=== PATIENT | female | born 2000 | race Hispanic/Latino ===

== ENCOUNTER 2022-07-28 18:29 | Day surgery (SDC) | payer OTHER ==
[2022-07-28 19:32] VITALS: BMI 29.9
[2022-07-28 19:52] LABS: Bilirubin Neg (Negative); Blood, Urine 10 (Negative); Clarity Slightly Cloudy (Clear); Glucose, Urine (Dipstick) Normal (Negative); Ketone, Urine 5 mg/dL (Negative); Leukocyte 25 (Negative); Nitrite Negative (Negative); Protein, Urine (Dipstick) 30 mg/dl (Neg-Trace); Specific Gravity, Urine 1.025 (1.002-1.036)
[2022-07-28 20:13] LABS: Urine Culture Reflex No No
[2022-07-28 20:16] LABS: Bacteria/HPF None Seen HPF (None Seen); RBC/HPF 0-3 HPF (0-3); WBC/HPF 0-3 HPF (0-3)
[2022-07-28] MEDS ORDERED: hydrALAZINE 20 MG/ML VIAL SLOW IVP PRN (20:26)
[2022-07-28] MEDS ORDERED: Nitrofurantoin Monohyd/M-Cryst 100 MG CAP PO SCH (21:00)
== END 2022-07-28 20:38 | disposition home or self-care (01) ==
LOC: CSHLD/OP 18:29
PROVIDERS: ATTEND Family Medicine
DX: O23.42 Unspecified infection of urinary tract in pregnancy, second trimester (principal); N39.0 Urinary tract infection, site not specified; Z3A.25 25 weeks gestation of pregnancy
CPT/HCPCS: 51701; 99282

== ENCOUNTER 2022-09-15 21:32 | Day surgery (SDC) | payer OTHER ==
[2022-09-15 22:09] VITALS: BMI 30.9
[2022-09-15] MEDS ORDERED: Lactated Ringer's 1,000 ML IV SCH (22:15)
[2022-09-15] MEDS ORDERED: hydrALAZINE 20 MG/ML VIAL SLOW IVP PRN (22:15)
[2022-09-15 22:46] LABS: #Eosinphils 0.1 10x3/uL (0.0-0.5); #Monocytes 0.7 10x3/uL (0.0-1.1); #Neutrophils 6.3 10x3/uL (1.5-8.4); %Basophils 0.2 % (0.0-2.0); %Eosinophils 0.7 % (0.0-6.0); %Lymphocytes 19.3 % (18.0-47.0); %Monocytes 7.9 % (0.0-10.0); %Neutrophils 71.3 % (40.0-75.0); Hemoglobin 10.8 g/dL (12.0-15.5); Mean Corpuscular HGB CONC 34.5 g/dL (32.0-36.0); Mean Corpuscular Hemoglobin 30.9 pg (27.0-33.0); Mean Corpuscular Volume 89.4 fl (81.6-98.3); Mean Platelet Volume 9.7 fl (7.4-10.4); Platelet Count 283 10x3/uL (150-450); RBC Distribution Width 13.4 % (11.5-14.5); White Blood Cell (WBC) Count 8.8 10x3/uL (3.5-10.5)
[2022-09-15 23:03] LABS: ALT (SGPT) 6 U/L (8-55); AST (SGOT) 15 U/L (5-30); Albumin 3.7 g/dL (3.5-5.0); Alkaline Phosphatase 187 U/L (40-100); Anion Gap 14 mmol/L (10-20); BUN (Urea Nitrogen) 8 mg/dL (8.4-21.0); Bilirubin, Total 0.2 mg/dL (0.2-1.2); Calc. Creatinine Clearance 192 mL/min (70-130); Calcium 9.2 mg/dL (7.8-10.44); Carbon Dioxide 22 mmol/L (22-29); Chloride 105 mmol/L (98-107); Estimated GFR 134; Globulin 3.2 g/dL (2.4-3.5); Glucose 95 mg/dL (70-105); Potassium 3.3 mmol/L (3.5-5.1); Protein, Total 6.9 g/dL (6.0-8.3); Sodium 138 mmol/L (136-145)
[2022-09-15 23:19] LABS: SARS-CoV-2 NAA Rapid Test Not Detected (NotDetected)
[2022-09-15 23:32] LABS: Bilirubin Neg (Negative); Blood, Urine 25 (Negative); Clarity Sl. Cloudy (Clear); Glucose, Urine (Dipstick) 100 mg/dL (Negative); Ketone, Urine Negative (Negative); Leukocyte 500 (Negative); Nitrite Negative (Negative); Protein, Urine (Dipstick) 15 mg/dl (Neg-Trace); Specific Gravity, Urine 1.015 (1.005-1.030)
[2022-09-15 23:34] LABS: Urine Culture Reflex No No
[2022-09-15 23:41] LABS: Amphetamine Not Detected (NotDetected); Barbiturates Screen Not Detected (NotDetected); Benzodiazepine Screen Not Detected (NotDetected); Cocaine Metabolite Screen Not Detected (NotDetected); Methadone Not Detected (NotDetected); Methamphetamine Not Detected (NotDetected); Opiate Screen Not Detected (NotDetected); Oxycodone Screen Not Detected (NotDetected); Phencyclidine (PCP) Not Detected (NotDetected); THC/Cannabinoid Screen Not Detected (NotDetected); Tricyclic Screen Not Detected (NotDetected)
[2022-09-15 23:52] LABS: RBC/HPF 0-3 HPF (0-3)
[2022-09-15 23:53] LABS: Yeast-Budding 2+ HPF (None Seen); Yeast-Hyphae 3+ HPF (None Seen)
[2022-09-15 23:54] LABS: Bacteria/HPF 3+ HPF (None Seen)
[2022-09-16] MEDS ORDERED: CEFAZOLIN 2 GM in Sodium Chloride 0.9% 100 ML IVPB SCH
[2022-09-16] MEDS ORDERED: Fluconazole 100 MG TAB PO SCH
[2022-09-16] MEDS ORDERED: CEFAZOLIN 2 GM VIAL ONE (00:02)
[2022-09-16] MEDS ORDERED: cefTRIAXone\\ROCEPHIN 2 GM VIAL IM SCH (00:15)
[2022-09-16] MEDS ORDERED: Lidocaine 1% PF 5 ML VIAL FS SCH (00:30)
== END 2022-09-16 00:52 | disposition home or self-care (01) ==
LOC: CSHLD/OP 21:32
PROVIDERS: ATTEND Family Medicine
DX: O23.43 Unspecified infection of urinary tract in pregnancy, third trimester (principal); O98.813 Other maternal infectious and parasitic diseases complicating pregnancy, third trimester; B37.9 Candidiasis, unspecified; O21.2 Late vomiting of pregnancy; Z3A.32 32 weeks gestation of pregnancy
CPT/HCPCS: 80053; 80306; 81001; 85025; J0696

== ENCOUNTER 2022-09-20 12:50 | Day surgery (SDC) | payer OTHER ==
[2022-09-20 13:42] VITALS: BMI 32.9
[2022-09-20] MEDS ORDERED: hydrALAZINE 20 MG/ML VIAL SLOW IVP PRN (14:29)
[2022-09-20] MEDS ORDERED: Ondansetron PF 4 MG/2 ML Vial IVP PRN (14:32)
[2022-09-20] MEDS ORDERED: Lactated Ringer's 1,000 ML IV SCH (14:45)
[2022-09-20 15:29] LABS: Bilirubin Neg (Negative); Blood, Urine 25 (Negative); Clarity Sl. Cloudy (Clear); Glucose, Urine (Dipstick) Normal (Negative); Ketone, Urine 15 mg/dL (Negative); Leukocyte 25 (Negative); Nitrite Negative (Negative); Protein, Urine (Dipstick) 15 mg/dl (Neg-Trace); Specific Gravity, Urine 1.015 (1.005-1.030); pH, Urine 6.5 (5.0-9.0)
[2022-09-20 15:46] LABS: Bacteria/HPF 2+ HPF (None Seen); RBC/HPF 0-3 HPF (0-3); WBC/HPF 0-3 HPF (0-3)
[2022-09-20 15:48] LABS: Mucous/LPF Rare LPF (<2+); Yeast-Budding Rare HPF (None Seen)
[2022-09-20 16:10] LABS: #Eosinphils 0.1 10x3/uL (0.0-0.5); #Monocytes 0.6 10x3/uL (0.0-1.1); #Neutrophils 6.4 10x3/uL (1.5-8.4); %Basophils 0.3 % (0.0-2.0); %Eosinophils 0.8 % (0.0-6.0); %Lymphocytes 17.4 % (18.0-47.0); %Monocytes 7.2 % (0.0-10.0); %Neutrophils 73.5 % (40.0-75.0); Mean Corpuscular HGB CONC 33.9 g/dL (32.0-36.0); Mean Corpuscular Volume 88.6 fl (81.6-98.3); Mean Platelet Volume 9.7 fl (7.4-10.4); Platelet Count 254 10x3/uL (150-450); RBC Distribution Width 13.5 % (11.5-14.5); Red Blood Cell (RBC) Count 3.33 10x6/uL (3.90-5.03); White Blood Cell (WBC) Count 8.6 10x3/uL (3.5-10.5)
[2022-09-20 16:12] LABS: ALT (SGPT) 16 U/L (8-55); AST (SGOT) 20 U/L (5-30); Albumin 3.5 g/dL (3.5-5.0); Alkaline Phosphatase 189 U/L (40-100); Anion Gap 13 mmol/L (10-20); BUN (Urea Nitrogen) 7 mg/dL (8.4-21.0); Bilirubin, Total 0.2 mg/dL (0.2-1.2); Calc. Creatinine Clearance 216 mL/min (70-130); Calcium 8.9 mg/dL (7.8-10.44); Carbon Dioxide 22 mmol/L (22-29); Chloride 106 mmol/L (98-107); Estimated GFR 136; Glucose 74 mg/dL (70-105); Potassium 3.5 mmol/L (3.5-5.1); Protein, Total 6.5 g/dL (6.0-8.3); Sodium 137 mmol/L (136-145)
== END 2022-09-20 18:10 | disposition home or self-care (01) ==
LOC: CSHLD/OP 12:50
PROVIDERS: ATTEND Family Medicine
DX: O21.2 Late vomiting of pregnancy (principal); O26.893 Other specified pregnancy related conditions, third trimester; R10.9 Unspecified abdominal pain; Z3A.33 33 weeks gestation of pregnancy; Z79.899 Other long term (current) drug therapy
CPT/HCPCS: 80053; 81003; 81015; 85025; 96360; 96361; 96375; 99283; J2405

== ENCOUNTER 2022-09-29 04:30 | Emergency (ER) | payer OTHER ==
[2022-09-29] MEDS ORDERED: Acetaminophen 500 MG TAB ONE (04:59)
[2022-09-29] MEDS ORDERED: diphenhydrAMINE 25 MG CAP ONE (05:00)
== END 2022-09-29 05:07 | disposition home or self-care (01) ==
LOC: CSHERS 04:30
DX: O99.713 Diseases of the skin and subcutaneous tissue complicating pregnancy, third trimester (principal); R21 Rash and other nonspecific skin eruption; Z3A.34 34 weeks gestation of pregnancy
CPT/HCPCS: 99282

== ENCOUNTER 2022-10-06 08:19 | Day surgery (SDC) | payer OTHER ==
[2022-10-06 06:11] LABS: SARS-CoV-2 NAA Rapid Test Not Detected (NotDetected)
[2022-10-06 06:41] LABS: #Eosinphils 0.1 10x3/uL (0.0-0.5); #Neutrophils 10.5 10x3/uL (1.5-8.4); %Basophils 0.2 % (0.0-2.0); %Eosinophils 0.8 % (0.0-6.0); %Lymphocytes 10.1 % (18.0-47.0); %Monocytes 7.7 % (0.0-10.0); %Neutrophils 80.7 % (40.0-75.0); Hemoglobin 10.2 g/dL (12.0-15.5); Mean Corpuscular HGB CONC 32.8 g/dL (32.0-36.0); Mean Corpuscular Hemoglobin 28.9 pg (27.0-33.0); Mean Corpuscular Volume 88.1 fl (81.6-98.3); Mean Platelet Volume 9.8 fl (7.4-10.4); Platelet Count 263 10x3/uL (150-450); RBC Distribution Width 13.7 % (11.5-14.5); Red Blood Cell (RBC) Count 3.53 10x6/uL (3.90-5.03)
[2022-10-06 06:47] LABS: ALT (SGPT) 12 U/L (8-55); AST (SGOT) 16 U/L (5-30); Albumin 3.5 g/dL (3.5-5.0); Alkaline Phosphatase 250 U/L (40-100); Anion Gap 14 mmol/L (10-20); BUN (Urea Nitrogen) 7 mg/dL (8.4-21.0); Bilirubin, Total 0.4 mg/dL (0.2-1.2); Calc. Creatinine Clearance 0 mL/min (70-130); Calcium 8.8 mg/dL (7.8-10.44); Carbon Dioxide 22 mmol/L (22-29); Chloride 107 mmol/L (98-107); Estimated GFR 132; Globulin 3.2 g/dL (2.4-3.5); Glucose 86 mg/dL (70-105); Potassium 3.8 mmol/L (3.5-5.1); Protein, Total 6.7 g/dL (6.0-8.3); Sodium 139 mmol/L (136-145)
[~2022-10-06 08:19] MED LIST: Ondansetron ODT 4 MG TAB ONE; diphenhydrAMINE 25 MG CAP ONE
[2022-10-06] MEDS ORDERED: hydrALAZINE 20 MG/ML VIAL SLOW IVP PRN (09:05)
[2022-10-06 09:26] VITALS: BMI 34.4
[2022-10-06 09:55] LABS: Fetal Membranes Rupture No Membranes Rupture (No Rupture)
[2022-10-06 12:25] LABS: Bilirubin Neg (Negative); Blood, Urine 10 (Negative); CAUTI Indications for Culture Pregnancy; Clarity Clear (Clear); Glucose, Urine (Dipstick) Normal (Negative); Ketone, Urine Negative (Negative); Leukocyte 25 (Negative); Nitrite Negative (Negative); Protein, Urine (Dipstick) Negative (Neg-Trace); Specific Gravity, Urine 1.005 (1.005-1.030); Urobilinogen Normal mg/dL (Less than 2)
[2022-10-06 12:34] LABS: Urine Culture Reflex Yes Yes
[2022-10-06 12:44] LABS: Bacteria/HPF None Seen HPF (None Seen); RBC/HPF 0-3 HPF (0-3); Squamous Epithelial 0-3 HPF (0-3); WBC/HPF 0-3 HPF (0-3)
[2022-10-06] MEDS ORDERED: Promethazine HCl 12.5 MG, Admixture Fee 1 EACH in Sodium Chloride 0.9% 50 ML IVPB PRN (13:01)
[2022-10-06] MEDS ORDERED: Acetaminophen 500 MG TAB PO SCH (13:15)
== END 2022-10-06 13:57 | disposition home or self-care (01) ==
LOC: CSHLD/OP 08:19 → CSHERS 08:20 → CSHLD/OP 08:20 → EDSTATUS 08:23 → CSHLD/OP 13:57
PROVIDERS: ATTEND Family Medicine
DX: O21.2 Late vomiting of pregnancy (principal); O47.03 False labor before 37 completed weeks of gestation, third trimester; O99.713 Diseases of the skin and subcutaneous tissue complicating pregnancy, third trimester; O98.513 Other viral diseases complicating pregnancy, third trimester; Z3A.35 35 weeks gestation of pregnancy; Z20.822 Contact with and (suspected) exposure to COVID-19
CPT/HCPCS: 36415; 76819; 80053; 81001; 82239; 84112; 85025; 87086; 96360; 96361; 96365; 99283; J0360; J2550; Q0162

== ENCOUNTER 2022-10-23 01:58 | Day surgery (SDC) | payer OTHER ==
[2022-10-23 02:22] VITALS: BMI 34.0
[2022-10-23] MEDS ORDERED: Lidocaine 1% (PF) 30 ML VIAL SC PRN (03:03)
[2022-10-23] MEDS ORDERED: NS w/ Oxytocin 30 units 500 ML IV SCH (03:15)
== END 2022-10-23 03:15 | disposition home or self-care (01) ==
LOC: CSHLD/OP 01:58
PROVIDERS: ATTEND Family Medicine
DX: O47.1 False labor at or after 37 completed weeks of gestation (principal); O26.893 Other specified pregnancy related conditions, third trimester; M54.50 Low back pain, unspecified; Z3A.38 38 weeks gestation of pregnancy; Z79.899 Other long term (current) drug therapy; Z98.890 Other specified postprocedural states
CPT/HCPCS: 99282

== ENCOUNTER 2022-10-28 10:50 | Day surgery (SDC) | payer OTHER ==
[2022-10-28 11:16] VITALS: BMI 36.0
[2022-10-28 12:50] LABS: Bilirubin Neg (Negative); Blood, Urine 250 (Negative); CAUTI Indications for Culture Pregnancy; Clarity Clear (Clear); Glucose, Urine (Dipstick) Normal (Negative); Ketone, Urine Negative (Negative); Leukocyte Negative (Negative); Nitrite Negative (Negative); Protein, Urine (Dipstick) 15 mg/dl (Neg-Trace); Specific Gravity, Urine 1.005 (1.005-1.030); Urobilinogen Normal mg/dL (Less than 2)
[2022-10-28 12:53] LABS: Urine Culture Reflex Yes Yes
[2022-10-28 13:00] LABS: Bacteria/HPF None Seen HPF (None Seen); Squamous Epithelial 0-3 HPF (0-3); WBC/HPF 0-3 HPF (0-3)
== END 2022-10-28 13:30 | disposition home or self-care (01) ==
LOC: CSHLD/OP 10:50
PROVIDERS: ATTEND Family Medicine
DX: O47.1 False labor at or after 37 completed weeks of gestation (principal); Z3A.38 38 weeks gestation of pregnancy; Z87.440 Personal history of urinary (tract) infections; Z79.899 Other long term (current) drug therapy
CPT/HCPCS: 81001; 87077; 87086; 99282

== ENCOUNTER 2022-10-30 10:31 | Day surgery (SDC) | payer OTHER ==
[2022-10-30 10:55] VITALS: BMI 36.0
[2022-10-30] MEDS ORDERED: Lactated Ringer's 1,000 ML IV SCH (12:00)
[2022-10-30] MEDS ORDERED: Ondansetron PF 4 MG/2 ML Vial IVP PRN (12:10)
[2022-10-30] MEDS ORDERED: Butorphanol Tartrate 1 MG/ML VIAL SLOW IVP SCH (12:15)
[2022-10-30] MEDS ORDERED: cefTRIAXone\\ROCEPHIN 1 GM in Sodium Chloride 0.9% 100 ML IVPB SCH (13:00)
[2022-10-30 13:06] LABS: Bilirubin Neg (Negative); Blood, Urine 25 (Negative); CAUTI Indications for Culture Pregnancy; Clarity Slightly Cloudy (Clear); Glucose, Urine (Dipstick) Normal (Negative); Ketone, Urine Negative (Negative); Leukocyte 25 (Negative); Nitrite Negative (Negative); Protein, Urine (Dipstick) 15 mg/dl (Neg-Trace); Specific Gravity, Urine 1.005 (1.005-1.030); Urobilinogen Normal mg/dL (Less than 2)
[2022-10-30 13:10] LABS: #Eosinphils 0.1 10x3/uL (0.0-0.5); #Monocytes 0.5 10x3/uL (0.0-1.1); #Neutrophils 5.8 10x3/uL (1.5-8.4); %Basophils 0.1 % (0.0-2.0); %Eosinophils 1.3 % (0.0-6.0); Hemoglobin 10.2 g/dL (12.0-15.5); Mean Corpuscular HGB CONC 32.9 g/dL (32.0-36.0); Mean Corpuscular Hemoglobin 28.5 pg (27.0-33.0); Mean Corpuscular Volume 86.6 fl (81.6-98.3); Mean Platelet Volume 10.5 fl (7.4-10.4); Platelet Count 227 10x3/uL (150-450); RBC Distribution Width 15.6 % (11.5-14.5); Red Blood Cell (RBC) Count 3.58 10x6/uL (3.90-5.03); White Blood Cell (WBC) Count 7.9 10x3/uL (3.5-10.5)
[2022-10-30 13:14] LABS: Urine Culture Reflex Yes Yes
[2022-10-30 13:15] LABS: Bacteria/HPF Rare-Few HPF (None Seen); RBC/HPF 0-3 HPF (0-3); WBC/HPF 0-3 HPF (0-3)
[2022-10-30 13:42] LABS: ALT (SGPT) 11 U/L (8-55); AST (SGOT) 19 U/L (5-34); Albumin 3.2 g/dL (3.5-5.0); Alkaline Phosphatase 268 U/L (40-100); Anion Gap 15 mmol/L (10-20); BUN (Urea Nitrogen) 6 mg/dL (7.0-18.7); Bilirubin, Total 0.2 mg/dL (0.2-1.2); Calc. Creatinine Clearance 234 mL/min (70-130); Calcium 8.4 mg/dL (7.8-10.44); Carbon Dioxide 19 mmol/L (22-29); Chloride 108 mmol/L (98-107); Estimated GFR 135; Globulin 2.6 g/dL (2.4-3.5); Glucose 68 mg/dL (70-105); Protein, Total 5.8 g/dL (6.0-8.3); Sodium 138 mmol/L (136-145)
[2022-10-30] MEDS ORDERED: Butorphanol Tartrate 1 MG/ML VIAL SLOW IVP PRN (14:08)
[2022-10-30] MEDS ORDERED: Morphine 4 MG/ML VIAL IM SCH (16:30)
[2022-10-30] MEDS ORDERED: Promethazine HCl 25 MG/ML VIAL IM SCH (16:30)
== END 2022-10-30 16:50 | disposition home or self-care (01) ==
LOC: CSHLD/OP 10:31
PROVIDERS: ATTEND Family Medicine
DX: O23.43 Unspecified infection of urinary tract in pregnancy, third trimester (principal); N39.0 Urinary tract infection, site not specified; B95.1 Streptococcus, group B, as the cause of diseases classified elsewhere; O47.1 False labor at or after 37 completed weeks of gestation; Z3A.39 39 weeks gestation of pregnancy
CPT/HCPCS: 80053; 81001; 85025; 87086; J0595; J0696; J2270; J2405; J2550; J3490